=== PATIENT | female | born 1965 | race African-American/Black ===

== ENCOUNTER 2024-03-05 01:00 | Emergency (ER) | payer OTHER ==
[2024-03-05 01:06] VITALS: BP 117/81; PULSE 100; RESP 16; TEMP 98.1; BMI 34.0
[2024-03-05 04:59] LABS: EPI CELLS 11 /uL (0-25.1); HYALINE CASTS 0 /uL (0-3.1); PH,URINE 5.5 (5.0-8.0); URINE APPEARANCE CLEAR; URINE BACTERIA 69 /uL (0-1359); URINE BILIRUBIN NEGATIVE (NEGATIVE); URINE COLOR YELLOW; URINE GLUCOSE (UA) NEGATIVE (NEGATIVE); URINE KETONE NEGATIVE (NEGATIVE); URINE LEUK ESTERASE 1+ (NEGATIVE); URINE NITRITE NEGATIVE (NEGATIVE); URINE PROTEIN NEGATIVE (NEGATIVE); URINE RBC 11 /uL (0-23.9); URINE UROBILINOGEN 0.2 mg/dL (0.2-1.0); URINE WBC 33 /uL (0-25.8)
[2024-03-05] MEDS ORDERED: ACETAMINOPHEN 325 MG TABLET (FP) ONE (05:56)
[2024-03-05] MEDS: ACETAMINOPHEN 500 MG TABLET (FP) PO ONE (06:00)
== END 2024-03-05 10:27 | disposition home or self-care (01) ==
LOC: JER 01:00
DX: N89.8 Other specified noninflammatory disorders of vagina (principal); R51.9 Headache, unspecified; R05.9 Cough, unspecified; R09.81 Nasal congestion; M79.671 Pain in right foot; M79.672 Pain in left foot
CPT/HCPCS: 81003; 87086; 99283-25